=== PATIENT | female | born 1955 ===

== ENCOUNTER 2024-05-06 20:22 | Outpatient (REF) | payer MEDICARE, SELFPAY ==
[2024-05-06 21:33] LABS: Anion Gap 10.1 mmol/L (3-11); BUN 15 mg/dL (7-18); CO2 25.9 mmol/L (21.0-32.0); CREATININE 0.7 mg/dL (0.55-1.02); Calcium 9.4 mg/dL (8.5-10.1); Calculated LDL 150 mg/dL (<100); Chloride 104 mmol/L (98-107); Cholesterol 224 mg/dL (<200); Estimated GFR 94.15 (mL/min/1.73m2); Glucose 92 mg/dL (74-106); HDL Cholesterol 57 mg/dL (40-60); Potassium 4.8 mmol/L (3.5-5.1); Sodium 140 mmol/L (136-145); Triglyceride 86 mg/dL (<150)
== END 2024-05-06 20:23 | disposition home or self-care (01) ==
LOC: NCHCN 20:22
PROVIDERS: Visit Provider Family Medicine
DX: I10 Essential (primary) hypertension (principal)
CPT/HCPCS: 80048; 80061